=== PATIENT | male | born 1980 | race Caucasian/White ===

== ENCOUNTER 2021-12-10 08:03 | Outpatient (CLI) | payer BC, SELFPAY ==
[2021-12-10 18:37] LABS: Alanine Aminotransferase 150 U/L (6-50); Albumin Level 4.5 g/dL (3.5-5.1); Alkaline Phosphatase 66 U/L (38-126); Anion Gap 10 mmol/L (8-16); Aspartate Amino Transferase 106 U/L (17-59); Blood Urea Nitrogen 17 mg/dL (9-20); Calcium 9.1 mg/dL (8.4-10.2); Carbon Dioxide 26 mmol/L (22-30); Chloride 98 mmol/L (98-107); Cholesterol 254 mg/dL (0-200); Estimated Glomerular Filt Rate > 60; Glucose 96 mg/dL (65-110); HDL Direct 33 mg/dL; Potassium 3.9 mmol/L (3.4-5.0); Sodium 134 mmol/L (137-145); Triglycerides 190 mg/dL (<150); Uric Acid 10.4 mg/dL (3.5-8.5)
[2021-12-10 18:41] LABS: Hemoglobin A1C 5.3 % (<5.7)
[2021-12-10 18:47] LABS: LDL Cholesterol Direct 162 mg/dL
== END 2021-12-10 08:04 | disposition home or self-care (01) ==
PROVIDERS: PCP Family Medicine; Visit Provider Family Medicine
DX: E03.9 Hypothyroidism, unspecified (principal); R73.01 Impaired fasting glucose; E78.5 Hyperlipidemia, unspecified; E79.0 Hyperuricemia without signs of inflammatory arthritis and tophaceous disease; Z13.228 Encounter for screening for other metabolic disorders
CPT/HCPCS: 36415; 80053; 80061; 83036; 84443; 84550

== ENCOUNTER → 2021-12-16 10:39 | Outpatient (CLI) | payer BC, SELFPAY ==
--- NOTE | ~2021-12-16 | US_ITS ---
EXAMINATION: US soft tissue groin LT DATE: 12/16/2021 11:16 INDICATION: left groin pulling sensation x3 weeks . TECHNIQUE: Grayscale and Doppler ultrasound images of the left groin were obtained. COMPARISON: Ultrasound left lower cavity venous Doppler, same date FINDINGS: The area of clinical concern was interrogated sonographically, revealing normal-sized lymph nodes. No solid or cystic mass. No sonographic evidence of inguinal hernia. IMPRESSION: No sonographic abdominal detected in the left groin. Reviewed, dictated and finalized at location K.
--- NOTE | ~2021-12-16 | US_ITS ---
EXAMINATION:US venous doppler LE LT INDICATION:Left groin pain TECHNIQUE: Multiple grayscale, color flow and Doppler images of the left lower extremity deep venous systems were obtained and reviewed. COMPARISON:No prior studies for comparison. FINDINGS: The common femoral, superficial femoral and popliteal veins demonstrate normal respiratory variation, augmentation and compressibility. Color flow is also seen within the posterior tibial, pe roneal, greater saphenous and profunda veins. IMPRESSION: 1: No lower extremity deep venous thrombosis. Reviewed, dictated and finalized at location A.
== END ==
PROVIDERS: PCP Family Medicine; Visit Provider Family Medicine
DX: R10.32 Left lower quadrant pain (principal); M79.89 Other specified soft tissue disorders
CPT/HCPCS: 76882; 93971

== ENCOUNTER 2022-02-17 08:04 | Outpatient (CLI) | payer BC, SELFPAY ==
[2022-02-17 19:14] LABS: Alanine Aminotransferase 70 U/L (6-50); Albumin Level 4.2 g/dL (3.5-5.1); Alkaline Phosphatase 81 U/L (38-126); Anion Gap 5 mmol/L (8-16); Aspartate Amino Transferase 71 U/L (17-59); Bilirubin,Total 1.8 mg/dL (0.2-1.3); Blood Urea Nitrogen 13 mg/dL (9-20); Calcium 8.7 mg/dL (8.4-10.2); Carbon Dioxide 28 mmol/L (22-30); Chloride 103 mmol/L (98-107); Estimated Glomerular Filt Rate > 60; Glucose 89 mg/dL (65-110); Potassium 3.7 mmol/L (3.4-5.0); Sodium 136 mmol/L (137-145)
== END 2022-02-17 08:05 | disposition home or self-care (01) ==
LOC: ANHGOSHLAB 08:05
PROVIDERS: PCP Family Medicine; Visit Provider Family Medicine
DX: R74.01 Elevation of levels of liver transaminase levels (principal)
CPT/HCPCS: 36415; 80053

== ENCOUNTER → 2022-02-23 08:01 | Outpatient (CLI) | payer BC, SELFPAY ==
--- NOTE | ~2022-02-23 | US_ITS ---
EXAMINATION: US abdomen limited DATE: 02/23/2022 08:23 INDICATION: Elevated liver function tests and elevated bilirubin TECHNIQUE: Multiple grayscale and Doppler ultrasound images of the abdomen were obtained. COMPARISON: None available FINDINGS: Bowel gas obscures visualization of the pancreas. The visualized portions of the pancreas a re unremarkable. The liver demonstrates increased echogenicity, heterogenous echotexture, and decreas ed through transmission. There appears to be focal sparing adjacent to the gallbladder fossa. No surf moises nodularity. Normal hepatopetal flow in the main portal vein. The gallbladder is normal with no ab normal wall thickening, pericholecystic fluid or stones. The normal common bile duct measures 4 mm. T here was no sonographic Faustin sign. IMPRESSION: 1. Diffuse hepatic steatosis. Reviewed, dictated and finalized at location A. GRINDER
== END ==
PROVIDERS: PCP Family Medicine; Visit Provider Family Medicine
DX: R74.8 Abnormal levels of other serum enzymes (principal); K76.0 Fatty (change of) liver, not elsewhere classified
CPT/HCPCS: 76705

== ENCOUNTER → 2022-04-03 07:48 | Outpatient (CLI) | payer BC, SELFPAY ==
--- NOTE | ~2022-04-03 | US_ITS ---
Ultrasound of the left groin CLINICAL HISTORY: Groin pain TECHNIQUE: Sonographic imaging of the left groin region was performed. FINDINGS: Several small morphologically normal lymph nodes are noted. No pathologic lymphadenopathy o r other suspicious mass lesion identified. No fluid collection identified. No hernia evident. IMPRESSION: No significant abnormality identified. Reviewed, dictated and finalized at [facility]. ER'S LICENSE EXAMINER
--- NOTE | ~2022-04-03 | US_ITS ---
Abdominal Sonogram: Real-time sonographic imaging of the abdomen was performed. Clinical History: Abdominal pain Findings: The liver appears echogenic, with no evidence of mass lesion or bile duct dilatation. Main portal vein demonstrates normal direction of flow. The spleen is normal in size without evidence of focal lesion. The gallbladder is well distended, and appears normal with no evidence of gallstone or wall thickening. The common bile duct measures 3 mm. The visualized pancreas, aorta, and IVC are un remarkable. The right kidney measures 9.6 cm in length and the left kidney measures 10.7 cm. There is no hydronephrosis or renal calculus. Impression: Diffuse fatty infiltration of the liver. Reviewed, dictated and finalized at location M. LE HOME SERVICER Impression: Diffuse fatty infiltration of the liver.
== END ==
PROVIDERS: PCP Family Medicine; Visit Provider Nurse Practitioner
DX: R10.32 Left lower quadrant pain (principal)
CPT/HCPCS: 76700; 76882

== ENCOUNTER 2022-04-16 09:34 | Outpatient (CLI) | payer BC, SELFPAY ==
[2022-04-16 09:56] LABS: Hematocrit 46.5 % (42.0-52.0); Hemoglobin 15.9 g/dL (14.0-18.0); Mean Corpuscular HGB Conc 34.2 g/dl (32-36); Mean Corpuscular Hemoglobin 31.7 pg (26-34); Mean Corpuscular Volume 92.8 fl (80-100); Mean Platelet Volume 9.1 fl (7.4-10.4); Platelet Count Result 295 k/mm3 (150-375); Red Blood Count 5.01 M/mm3 (4.6-6.20); Red Cell Distribution Width 12.3 % (11.5-14.5); White Blood Count 9.5 K/mm3 (4.5-10.0)
[2022-04-16 10:25] LABS: Alanine Aminotransferase 85 U/L (6-50); Albumin Level 4.7 g/dL (3.5-5.1); Alkaline Phosphatase 93 U/L (38-126); Aspartate Amino Transferase 56 U/L (17-59); Bilirubin,Total 1.6 mg/dL (0.2-1.3); CRP 0.5 mg/dL (<1.0)
[2022-04-16 10:27] LABS: Erythrocyte Sedimentation Rate 13 mm/hr (0-20)
[2022-04-16 11:01] LABS: Hepatitis B Surface Antigen Negative (Negative)
[2022-04-16 11:07] LABS: HAV RESULT Negative (Negative); Hepatitis B Core IgM Result Negative (Negative)
[2022-04-16 11:31] LABS: Hepatitis B Surface Anti Res Indeterminate; Hepatitis C Virus Antibody Reactive (Negative)
[2022-04-19 08:51] LABS: Actin Antibody (IgG) <20 U (<20)
[2022-04-19 13:24] LABS: LKM 1 Antibody <=20.0 U (<=20.0)
[2022-04-19 14:47] LABS: Hepatitis C RNA, Quant PCR <15 IU/mL
[2022-04-20 11:29] LABS: Hepatitis A Antibody Total Reactive (Nonreactive)
[2022-04-21 11:03] LABS: Mitochondrial (M2) Ab (IgG) 42.4 U (<=20.0)
[2022-04-21 19:55] LABS: Ceruloplasmin 23 mg/dL (18-36)
[2022-04-22 16:23] LABS: Alpha Fetoprotein Tumor Marker 1.7 ng/mL (<6.1)
[2022-04-23 09:08] LABS: Gliadin AB, IgG <1.0 U/mL (<15.0); TTG IGA AB <1.0 U/mL (<15.0)
== END 2022-04-16 09:35 | disposition home or self-care (01) ==
LOC: ANHLAB 09:35
PROVIDERS: PCP Family Medicine; Visit Provider Nurse Practitioner
DX: K76.0 Fatty (change of) liver, not elsewhere classified (principal); R79.89 Other specified abnormal findings of blood chemistry; K74.60 Unspecified cirrhosis of liver
CPT/HCPCS: 36415; 80074; 80076; 82105; 82390; 82728; 83516; 83520; 85027; 85652; 86038; 86140; 86255; 86376; 86706; 86708; 87522

== ENCOUNTER 2022-05-13 00:42 | Day surgery (SDC) | payer BC, SELFPAY ==
[2022-04-27 14:28] VITALS: BMI 27.3
[2022-05-13 11:28] VITALS: BP 113/79; PULSE 112; RESP 20; TEMP 36.4; O2SAT 100
[2022-05-13] MEDS: LACTATED RINGERS 1,000 ML 150 ML IV CONT (11:30)
--- NOTE | 2022-05-13 11:45 | WPDHPUPDATE1 ---
History and Physical Update Update Date/Time: 05/13/22 11:45 History and Physical has been reviewed, including an updated exam of the patient. There are NO changes in the patient's condition. Risks, benefits, and alternatives have been discussed and questions answered. Patient agrees to proceed with procedure.
--- NOTE | 2022-05-13 12:14 | SUR.OPER ---
EGD ended at 1207. Colonoscopy began at 1212.
[2022-05-13 12:25] VITALS: BP 86/49; PULSE 93; RESP 22; O2SAT 97
[2022-05-13 12:35] VITALS: BP 90/48; PULSE 87; RESP 20; O2SAT 100
[2022-05-13 12:45] VITALS: BP 98/68; PULSE 78; RESP 20; O2SAT 100
[2022-05-13 12:55] VITALS: BP 108/75; PULSE 84; RESP 20; O2SAT 98
== END 2022-05-13 13:02 | disposition home or self-care (01) ==
PROVIDERS: PCP Family Medicine; Visit Provider Internal Medicine Gastroenterology
PROC: 0DJ08ZZ Inspection of Upper Intestinal Tract, Via Natural or Artificial Opening Endoscopic (ICD-10-PCS; CPT 43235; principal; 2022-05-13 12:30)
DX: Z12.11 Encounter for screening for malignant neoplasm of colon (principal); K57.30 Diverticulosis of large intestine without perforation or abscess without bleeding; K22.2 Esophageal obstruction; K20.0 Eosinophilic esophagitis; E78.5 Hyperlipidemia, unspecified; E03.9 Hypothyroidism, unspecified; M10.9 Gout, unspecified; K76.0 Fatty (change of) liver, not elsewhere classified; Z79.82 Long term (current) use of aspirin
CPT/HCPCS: 45378; 43249; 43239; 88305; C1726; J2704; J7120

== ENCOUNTER 2022-05-27 09:50 | Outpatient (CLI) | payer BC, SELFPAY ==
[2022-05-27 10:55] LABS: Alanine Aminotransferase 67 U/L (6-50); Albumin Level 4.6 g/dL (3.5-5.1); Alkaline Phosphatase 84 U/L (38-126); Aspartate Amino Transferase 54 U/L (17-59); Bilirubin,Total 1.8 mg/dL (0.2-1.3)
[2022-06-04 14:53] LABS: ALT 53 U/L (9-46); Alpha-2-Macroglobulin 152 mg/dL (106-279); Apolipoprotein A1 130 mg/dL (94-176); Fibrosis Score 0.25; Fibrosis Stage F0-F1; GGT 20 U/L (3-95); Haptoglobin 106 mg/dL (43-212); Necroinflammat Act Grade A1; Total Bilirubin 1.4 mg/dL (0.2-1.2)
== END 2022-05-27 09:51 | disposition home or self-care (01) ==
LOC: ANHLAB 09:51
PROVIDERS: PCP Family Medicine; Visit Provider Nurse Practitioner
DX: K74.3 Primary biliary cirrhosis (principal); K76.0 Fatty (change of) liver, not elsewhere classified; R79.89 Other specified abnormal findings of blood chemistry
CPT/HCPCS: 36415; 80076; 81596

== ENCOUNTER 2022-08-21 01:45 | Day surgery (SDC) | payer BC, SELFPAY ==
[2022-08-13 15:08] VITALS: BMI 27.3
[2022-08-21 10:20] VITALS: BP 123/78; PULSE 68; RESP 20; TEMP 36.1; O2SAT 100
--- NOTE | 2022-08-21 10:23 | WPDANESEPPF ---
Anes - Initial Pre Proc Eval Procedure: Operation Date: 08/21/22 11:30 Proposed Procedures p Esophagogastroduodenoscopy - Pierre Babb MD Date/Time: 08/21/22 10:23 Surgeon: Pierre Babb MD Pre Op Diagnosis: eosinophilic esophagitis Patient Data Age: 42 Gender: M Height: 1.78 m Weight: 86.8 kg Last Vital Signs Temp 36.1 C L 08/21/22 10:20 Pulse 68 08/21/22 10:20 Resp 20 08/21/22 10:20 BP 123/78 08/21/22 10:20 Pulse Ox 100 08/21/22 10:20 O2 Del Method Room Air 08/21/22 10:20 Allergies Allergy/AdvReac Type Severity Reaction Status Date / Time No Known Allergies Allergy Verified 08/21/22 10:18 Home Medications Medication Instructions Recorded Confirmed Type aspirin 81 mg tablet,delayed 81 mg PO DAILY 12/09/21 08/13/22 History release (Adult Low Dose Aspirin) omeprazole 40 mg capsule,delayed 40 mg PO DAILY #30 caps 05/13/22 08/13/22 Rx release allopurinol 100 mg tablet 100 mg PO DAILY #90 tabs 06/12/22 08/13/22 Rx atorvastatin 20 mg tablet 20 mg PO DAILY #90 tabs 06/12/22 08/13/22 Rx levothyroxine 100 mcg tablet 100 mcg PO DAILY #90 tabs 06/17/22 08/21/22 Rx Patient hx anesthesia problems: none Family hx anesthesia problems: none Results Review: All pre-operative results and documents have been reviewed as part of the pre-operative evaluation. [facility] Past Medical History Medical History (Updated 07/27/22 @ 10:09 by Kathleen Merritt APRN) Dysphagia Elevated LFTs Eosinophilic esophagitis Former consumption of alcohol Hepatic steatosis Hepatitis C antibody test positive Primary biliary cholangitis Surgical History Surgical History H/O wisdom tooth extraction (~2004) Hx of tonsillectomy (~1984) Status post LASIK surgery of both eyes (~2017) Family History Family History Father Malignant neoplasm of prostate Diabetes mellitus Mother Bladder cancer Sibling Throat cancer Grandparent Bladder cancer Social History Social History Smoking status: Never smoker Alcohol intake: former Drinks per week: 5 Alcohol use details: beer Substance use: never Substance use type: does not use Lack of Transportation: No Lack of Food: Never True Current Housing: I Have Housing Concerned About Future Housing: No Difficulty Paying Gas/Electric Bills: No Difficulty Paying for Meds: No Currently Unemployed: No Education: Bachelor's Degree Difficulty w/ Childcare or Family Care: No Living arrangements: with family Occupation/Education: occupation 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 Gender identity (if verbalized by the patient): Male Sexual Orientation (if Verbalized by the Patient): Straight or Heterosexual Spiritual care concerns: No Anes - Eval Final PreProcedure Day of Procedure 08/21/22 10:23 Patient weight: overweight Heart: regular rate and rhythm Lungs: clear to auscultation and normal air movement Airway: Mallampati scale class II Neurological: alert and oriented Last oral intake: >/= 8 hours ASA classification: II Emergent: no Anesthetic plan: proceed Anesthesia type and monitoring: general GIVS Results Review: All pre-operative results and documents have been reviewed as part of the pre-operative evaluation. Informed Consent: The patient's anesthetic plan and its attendant risks and benefits were discussed with the patient/family/POA. Questions were solicited and answers provided to the satisfaction of the patient/family/POA.
[2022-08-21] MEDS: LACTATED RINGERS 1,000 ML 150 ML IV CONT (10:32)
--- NOTE | 2022-08-21 10:51 | WPDHPUPDATE1 ---
History and Physical Update Update Date/Time: 08/21/22 10:51 History and Physical has been reviewed, including an updated exam of the patient. There are NO changes in the patient's condition. Risks, benefits, and alternatives have been discussed and questions answered. Patient agrees to proceed with procedure.
[2022-08-21 11:05] VITALS: BP 112/71; PULSE 67; RESP 18; O2SAT 100
[2022-08-21 11:15] VITALS: BP 110/65; PULSE 62; RESP 18; O2SAT 99
[2022-08-21 11:25] VITALS: BP 121/82; PULSE 74; RESP 23; O2SAT 97
== END 2022-08-21 11:29 | disposition home or self-care (01) ==
PROVIDERS: PCP Family Medicine; Visit Provider Internal Medicine Gastroenterology
PROC: 0DJ08ZZ Inspection of Upper Intestinal Tract, Via Natural or Artificial Opening Endoscopic (ICD-10-PCS; CPT 43235; principal; 2022-08-21 11:30)
DX: Z09 Encounter for follow-up examination after completed treatment for conditions other than malignant neoplasm (principal); Z87.19 Personal history of other diseases of the digestive system; R76.8 Other specified abnormal immunological findings in serum; B18.2 Chronic viral hepatitis C; K76.0 Fatty (change of) liver, not elsewhere classified; Z79.82 Long term (current) use of aspirin
CPT/HCPCS: 43239; 88305; J2704; J7120

== ENCOUNTER 2023-03-03 08:05 | Outpatient (CLI) | payer BC, SELFPAY ==
[2023-03-03 19:02] LABS: Hemoglobin A1C 5.7 % (<5.7)
[2023-03-03 20:04] LABS: Alanine Aminotransferase 55 U/L (6-50); Albumin Level 4.3 g/dL (3.5-5.1); Alkaline Phosphatase 97 U/L (38-126); Anion Gap 8 mmol/L (8-16); Aspartate Amino Transferase 43 U/L (17-59); Bilirubin,Total 1.8 mg/dL (0.2-1.3); Blood Urea Nitrogen 10 mg/dL (9-20); Calcium 9.2 mg/dL (8.4-10.2); Carbon Dioxide 27 mmol/L (22-30); Chloride 102 mmol/L (98-107); Cholesterol 140 mg/dL (0-200); Estimated Glomerular Filt Rate > 60; Glucose 107 mg/dL (65-110); HDL Direct 28 mg/dL; Potassium 4.2 mmol/L (3.4-5.0); Sodium 137 mmol/L (137-145); Triglycerides 144 mg/dL (<150); Uric Acid 6.8 mg/dL (3.5-8.5)
[2023-03-03 20:15] LABS: LDL Cholesterol Direct 84 mg/dL
[2023-03-03 20:35] LABS: Free T4 Free Thyroxine Reflex 1.09 ng/dL (0.78-2.19)
[2023-03-03 21:47] LABS: Total Triiodothyronine (T3) 1.11 NG/ML (0.97-1.69)
== END 2023-03-03 08:06 | disposition home or self-care (01) ==
LOC: ANHGOSHLAB 08:06
PROVIDERS: PCP Family Medicine; Visit Provider Family Medicine
DX: E03.9 Hypothyroidism, unspecified (principal); R73.01 Impaired fasting glucose; Z13.228 Encounter for screening for other metabolic disorders; Z13.220 Encounter for screening for lipoid disorders; M10.9 Gout, unspecified
CPT/HCPCS: 36415; 80053; 80061; 83036; 84439; 84443; 84480; 84550

== ENCOUNTER 2023-10-01 07:58 | Outpatient (CLI) | payer BC, SELFPAY ==
[2023-10-01 19:07] LABS: Alanine Aminotransferase 33 U/L (6-50); Albumin Level 4.2 g/dL (3.5-5.1); Alkaline Phosphatase 92 U/L (38-126); Anion Gap 10 mmol/L (4-12); Aspartate Amino Transferase 40 U/L (17-59); Bilirubin,Total 1.2 mg/dL (0.2-1.3); Blood Urea Nitrogen 11 mg/dL (9-20); Calcium 8.9 mg/dL (8.4-10.2); Carbon Dioxide 28 mmol/L (22-30); Chloride 99 mmol/L (98-107); Cholesterol 116 mg/dL (0-200); Estimated Glomerular Filt Rate > 60; Glucose 91 mg/dL (65-110); HDL Direct 31 mg/dL; Potassium 3.9 mmol/L (3.4-5.0); Sodium 137 mmol/L (137-145); Triglycerides 170 mg/dL (<150); Uric Acid 5.4 mg/dL (3.5-8.5)
[2023-10-01 19:18] LABS: LDL Cholesterol Direct 70 mg/dL
[2023-10-01 19:24] LABS: Free T4 Free Thyroxine 1.17 ng/mL (0.78-2.19)
[2023-10-01 19:33] LABS: Thyroid Stimulating Hormone 0.906 uIU/mL (0.465-4.680)
== END 2023-10-01 07:59 | disposition home or self-care (01) ==
LOC: ANHGOSHLAB 07:59
PROVIDERS: PCP Family Medicine; Visit Provider Family Medicine
DX: E78.2 Mixed hyperlipidemia (principal); E03.9 Hypothyroidism, unspecified; M10.9 Gout, unspecified; Z13.228 Encounter for screening for other metabolic disorders
CPT/HCPCS: 36415; 80053; 80061; 84439; 84443; 84550

== ENCOUNTER 2024-01-18 08:28 | Emergency (ER) | payer BC, SELFPAY ==
--- NOTE | ~2024-01-18 | XR_ITS ---
EXAMINATION: XR chest 2V DATE: 01/18/2024 09:27 INDICATION: Cough and shortness of breath. TECHNIQUE: Frontal and lateral views of the chest were obtained on 3 radiographs. COMPARISON: None. FINDINGS: There is no pneumonia, pleural effusion, or pneumothorax. The heart size is normal. IMPRESSION: 1. No acute cardiopulmonary disease. Reviewed, dictated and finalized at location A. CORRECTION OFFICER
[2024-01-18 08:49] VITALS: BP 115/87; PULSE 110; RESP 16; TEMP 36.6; O2SAT 99
--- NOTE | 2024-01-18 09:20 | ED_ITS ---
HPI - General Adult General Chief complaint: Upper Respiratory Infection Stated complaint: Cough Source: patient Mode of arrival: ambulatory Limitations: no limitations History of Present Illness HPI narrative: Pt presents for evaluation of a productive cough of green sputum for the past 3 weeks. He has some mild DO going up stairs. He denies any fever, chills, nausea, vomiting, sore throat, otalgia. He tried taking Mucinex for his symptoms. His daughters recently had pneumonia. He does not smoke. Related Data Allergies Allergy/AdvReac Type Severity Reaction Status Date / Time No Known Allergies Allergy Verified 03/02/23 15:53 Review of Systems Review of Systems: CONSTITUTIONAL: Denies fever, chills, or sweats. EYES: Denies visual changes, redness, or discharge. ENT: Denies rhinorrhea, congestion, sore throat, or otalgia. CARDIOVASCULAR: Denies chest pain, palpitations, or edema. RESPIRATORY: Reports cough. Denies SOB. GASTROINTESTINAL: Denies abdominal pain, nausea, vomiting, or diarrhea. GENITOURINARY: Denies dysuria or hematuria. SKIN: Denies rash or itching. MUSCULOSKELETAL: Denies back pain, joint pain, or myalgia. NEUROLOGIC: Denies headache, numbness, dizziness, or weakness. PSYCHIATRIC: Denies anxiety or depression. [facility] Past Medical History Medical History Dysphagia Elevated LFTs Eosinophilic esophagitis Former consumption of alcohol Hepatic steatosis Hepatitis C antibody test positive Primary biliary cholangitis Surgical History Surgical History H/O wisdom tooth extraction (~2004) Hx of tonsillectomy (~1984) Status post LASIK surgery of both eyes (~2017) Family History Family History Father Malignant neoplasm of prostate Diabetes mellitus Mother Bladder cancer Sibling Throat cancer Grandparent Bladder cancer Social History Social History Smoking status: Never smoker Alcohol intake: former Drinks per week: 0 Alcohol use details: 03/02/2023 patient quit 12mo ago Substance use: never Substance use type: does not use Lack of Transportation: No Lack of Food: Never True Current Housing: I Have Housing Concerned About Future Housing: No Difficulty Paying Gas/Electric Bills: No Difficulty Paying for Meds: No Currently Unemployed: No Education: Bachelor's Degree Difficulty w/ Childcare or Family Care: No Living arrangements: with family Occupation/Education: occupation 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 HEAD: Normocephalic, atraumatic. EYES: PERRLA and EOMI. ENT: Nares clear, no rhinorrhea or epistaxis. Mucous membranes moist. Oropharynx without tonsillar hypertrophy exudate or other lesions. Bilateral TMs pearly roach nonbulging NECK: Supple. No adenopathy or masses. No carotid bruits or JVD CHEST: Cough present on exam. Rales in RLL posteriorly HEART: Regular rate and rhythm. No murmur heard. Normal peripheral pulses. ABDOMEN: Soft, nontender, nondistended, normal active bowel sounds. EXTREMITIES: Normal range of motion. No edema. SKIN: Warm, dry, no rash. NEURO: No focal deficits. Alert and oriented x3. PSYCH: Normal mood and affect. Course Course Emergency Course: This is a 43-year-old male who presented for evaluation of a cough and some dyspnea on exertion. Chest x-ray was negative. Exam is consistent with viral URI. Will discharge with prednisone, albuterol, Tessalon. Increase hydration. Fzko-vlv-[id number] agents for symptom management. Follow up with primary provider. Go to the ER for worsening symptoms. Patient in agreement with plan of care. Level of Care: Express Care Visit Vital Signs Vital signs: Vital Signs Temperature 36.6 C 01/18/24 08:49 Pulse Rate 110 H 01/18/24 08:49 Respiratory Rate 16 01/18/24 08:49 Blood Pressure 115/87 01/18/24 08:49 Pulse Oximetry 99 01/18/24 08:49 Temperature 36.6 C 01/18/24 08:49 Pulse Rate 110 H 01/18/24 08:49 Respiratory Rate 16 01/18/24 08:49 Blood Pressure 115/87 01/18/24 08:49 Pulse Oximetry 99 01/18/24 08:49 Medical Decision Making Vital Signs Vital Signs: Vital Signs Temperature 36.6 C 01/18/24 08:49 Pulse Rate 110 H 01/18/24 08:49 Respiratory Rate 16 01/18/24 08:49 Blood Pressure 115/87 01/18/24 08:49 Pulse Oximetry 99 01/18/24 08:49 Temperature 36.6 C 01/18/24 08:49 Pulse Rate 110 H 01/18/24 08:49 Respiratory Rate 16 01/18/24 08:49 Blood Pressure 115/87 01/18/24 08:49 Pulse Oximetry 99 01/18/24 08:49 Imaging Data Radiologist's impression: EXAMINATION: XR chest 2V DATE: 01/18/2024 09:27 INDICATION: Cough and shortness of breath. TECHNIQUE: Frontal and lateral views of the chest were obtained on 3 radiographs. COMPARISON: None. FINDINGS: There is no pneumonia, pleural effusion, or pneumothorax. The heart size is normal. IMPRESSION: 1. No acute cardiopulmonary disease. Discharge Plan Discharge Clinical Impression: Upper respiratory infection, viral Patient Disposition: Home, Self-Care Condition: Stable Instructions: Antibiotic Form, Upper Respiratory Infection (ED), Viral Syndrome (ED) Patient Language: Occitan Prescriptions: New prednisone 50 mg tablet 50 mg PO DAILY Qty: 5 0RF albuterol sulfate 90 mcg/actuation HFA aerosol inhaler 2 puff inhalation QID PRN (Reason: shortness of breath or wheezing) Qty: 8.5 0RF benzonatate 200 mg capsule 200 mg PO TID PRN (Reason: cough) Qty: 30 0RF No Action omeprazole 40 mg capsule,delayed release(DR/EC) 40 mg PO DAILY Qty: 30 5RF levothyroxine 100 mcg tablet 100 mcg PO DAILY Qty: 90 1RF atorvastatin 20 mg tablet 20 mg PO DAILY Qty: 90 1RF allopurinol 100 mg tablet 100 mg PO DAILY Qty: 90 1RF Rx Instructions: LAST REFILL UNTIL SEEN-NEEDS APPOINTMENT Follow-up/Referrals: Adán Abraham DO [Primary Care Provider] - Time of Disposition: 09:40
== END 2024-01-18 09:48 | disposition home or self-care (01) ==
PROVIDERS: Emergency Provider Nurse Practitioner; PCP Family Medicine
DX: J06.9 Acute upper respiratory infection, unspecified (principal); K20.0 Eosinophilic esophagitis; K76.0 Fatty (change of) liver, not elsewhere classified
CPT/HCPCS: 71046; 99213; G0463

== ENCOUNTER 2024-09-26 11:22 | Outpatient (CLI) | payer BC, SELFPAY ==
--- NOTE | ~2024-09-26 | XR_ITS ---
EXAMINATION: XR abdomen obstructive series DATE: 09/26/2024 11:39 INDICATION: Diarrhea TECHNIQUE: Supine and upright views of the abdomen. FINDINGS: Comparison ultrasound abdomen dated 04/03/2022 The visualized lung parenchyma is normal.. There is a nonobstructive bowel gas pattern. Gas and stool are seen throughout the colon to the level of the rectum. There is no free air. IMPRESSION: 1. No acute abdominal abnormality. Reviewed, dictated and finalized at location B.
== END 2024-09-26 11:23 | disposition home or self-care (01) ==
PROVIDERS: PCP Family Medicine; Visit Provider Family Medicine
DX: M79.671 Pain in right foot (principal); R19.7 Diarrhea, unspecified
CPT/HCPCS: 73630; 74019

== ENCOUNTER 2024-10-05 07:33 | Outpatient (CLI) | payer BC, SELFPAY ==
--- NOTE | ~2024-10-05 | US_ITS ---
US abdomen limited INDICATION: Elevated liver function tests. PROCEDURE: Realtime right upper abdominal ultrasound. COMPARISON: No prior studies for comparison. FINDINGS: The pancreas is normal without focal mass or pancreatic ductal dilation. Liver echotexture is diffusely increased, consistent with fatty infiltration. There is normal directional flow in the portal vein. The gallbladder is normal without stones, gallbladder wall thickening or pericholecystic fluid. Comm on bile duct measures 3 mm. No sonographic Faustin's sign. Right renal length is 10.5 cm. IMPRESSION: 1: Fatty infiltration of the liver. Reviewed, dictated and finalized at location A.
== END 2024-10-05 07:34 | disposition home or self-care (01) ==
LOC: MICIMG 07:33
PROVIDERS: PCP Family Medicine; Visit Provider Family Medicine
DX: R79.89 Other specified abnormal findings of blood chemistry (principal); K76.0 Fatty (change of) liver, not elsewhere classified
CPT/HCPCS: 76705

== ENCOUNTER 2024-10-05 08:31 | Outpatient (CLI) | payer BC, SELFPAY ==
--- OUTSIDE RECORDS SUMMARY | 2024-10-05 08:36 | XMS_ITS ---
Author Organization [facility] [employer] [facility] [place] ([address]) Address [address] [place] [address] Care Team Providers Care Printer Slotter Helper Name Role Phone Adán Abraham Primary Care Provider UnavailMary Blanco Unavailable [phone] Kathleen Merritt Unavailable Unavailable [facility]Migration, Provider Unavailable Unavailab le [facility] Encounter Medications Medication SIG (Take, Route, Frequency, Duration) Notes Start Date End Date Status Atorvastatin Calcium 10 MG 1 tab(s) orally once a day; Duration: 30 day(s) Active Aspir-Low 81mg daily *Please review and pick correct strength-formulat ion from Medispan options. If intended option is not shown, discontinue and re-order from Quick Search* Active Ursodiol 300 MG 1 cap(s) orally 2 times a day; Duration: 30 day(s) Not-Taking Omeprazole 40 MG 1 cap(s) orally once a day; Duration: 30 day(s) Active Levothyroxine Sodium 100 MCG 1 tab(s) orally once a day; Duration: 30 day(s) Active Allopurinol 100 MG as directed orally Active Encounters Encounter Location Date Provider Diagnosis [place] [address] 08/28/2023 Provider ZZ-Migration Plan Of Treatment No Information Progress Notes * Robert FRANKDOB:1980 (44 yo M)Acc No.[id number]:08/28/2023 Patient: Robert ESCALANTE Provider: Esvin Mendoza :1980 A ge:43 Y S ex:Male Date:08/28/2023 Address:[address], [id number] Pcp:Adán Abraham Subjective: * Chief Complaints: * 1 . Multum To Medispan Conversion Encounter. * Medical History: * Medications: T aking Aspir-Low , Notes to Pharmacist: 81mg daily *Please review and pick correct strength[facility]formulation from [facility]. If intended option is not shown, discontinue and re-order from Quick Search*, Taking Atorvastatin Calcium 10 MG Tablet 1 tab(s) orally once a day , Taking Allopurinol 100 MG Tablet as directed orally , Taking Levothyroxine Sodium 100 MCG Tablet 1 tab(s) orally once a day , Taking Omeprazole 40 MG Capsule Delayed Release 1 cap(s) orally once a day , Not- Taking/PRN Ursodiol 300 MG Capsule 1 cap(s) orally 2 times a day Objective: * Vitals: Assessment: Plan: * Treatment: * Billing Information: * Visit Code: * Procedure Codes: * Electronic signature of Prov marjorier ZZ-Migration on 10/05/2024 at 08:35 AM CDT Sign off status: Pending * Provider: Esvin Mendoza Date: 08/28/2023 Generated for Lew peña/Jhonatan/Hilary on: 10/05/2024 08:35 AM CDT
--- OUTSIDE RECORDS SUMMARY | 2024-10-05 08:36 | XMS_ITS | Patient Health Record ---
Author Organization [facility] Address [address] [place] [address] [place] [id number] Care Team Providers Care Photo Mask Pattern Generator Name Role Phone OLIVIA MEDELLIN Primary Care Provider Reason For Referral No Information Medications Medication SIG (Take, Route, Frequency, Duration) Notes Start Date End Date Status Atorvastatin Calcium 10 MG 1 tablet Oral ly Once a day; Duration: 90 days Active Fenofibrate 48 MG 1 tablet with food O rally Once a day; Duration: 90 days Active Synthroid 125 MCG 1 tablet on an empty stomach in the morning Orally Once a day; Duration: 90 days Active Aspirin 325 MG 1 tablet Orally Once a day; Duration: 90 days Active Social History Tobacco Use: Social History Observation Description Date Details (start date - stop date) Never Smoker NA - NA Tobacco Use/Smoking Question Answer Notes Are you a nonsmoker Alcohol Screen Question Answer Notes Did you have a drink contain ing alcohol in the past year? Yes How often did you have a dri nk containing alcohol in the past year? 2 to 4 times a month (2 points) Points 2 Interpretation Negative Section Notes: Minimal consumption of alcoh ol Minimal consumption of alcoh ol Minimal consumption of alcoh ol Minimal consumption of alcoh ol Problems Problem Type SNOMED Code ICD Code Onset Dates Problem Status W/U Status Risk Notes Problem Mixed hyperlipidemia (471895029) Mixed hyperlipidemia (E78.2) Active confirmed Problem Hypothyroidism (20667081) Hypothyroidism, unspecified type (E03.9) Active confirmed Problem Allergy to beef (929655886) Allergy to beef (Z91.018) Active confirmed Plan Of Treatment Pending Test Test Name Order Date CARDIO CRP(R) 06/29/2018 cmp w/GFR 06/29/2018 cmp w/GFR 06/10/2018 cmp w/GFR 02/21/2019 T3, FREE 06/10/2018 C-REACTIVE PROTEIN 02/21/2019 HEMOGLOBIN A1c 02/21/2019 HEMOGLOBIN A1c 06/29/2018 CBC (INCLUDES DIFF and PLT) 06/29/2018 CBC (INCLUDES DIFF and PLT) 02/21/2019 MICROALBUMIN, RANDOM URINE (W/CREATININE ) 02/21/2019 MICROALBUMIN, RANDOM URINE (W/CREATININE ) 06/29/2018 LIPID PANEL 06/29/2018 LIPID PANEL 02/21/2019 LIPID PANEL 06/10/2018 T4, FREE 06/10/2018 TESTOSTERONE,TOTAL,MALES 02/21/2019 TESTOSTERONE,TOTAL,MALES 06/29/2018 TSH, 3RD GENERATION 06/29/2018 TSH, 3RD GENERATION 02/21/2019 TSH, 3RD GENERATION 06/10/2018 URIC ACID 06/10/2018 ECG 01/25/2018 PRICK TESTS 01/25/2018 Spirometry (for Elite physical) 01/26/20 18 Future Test Test Name Order Date cmp w/GFR 02/09/2018 T3, FREE 02/09/2018 LIPID PANEL 02/09/2018 T4, FREE 02/09/2018 TSH, 3RD GENERATION 02/09/2018 URIC ACID 02/09/2018 Insurance Providers Payer Name Payer Address Payer Phone Subscriber Number Group Number Insured Name Patient Relationship to Insured Coverage Start Date Coverage End Date [facility] [address] [place] [address] [id number] Robert Winston Self - patient is the insured Medical (General) History Medical History History ICD Code High blood pressure High Cholesterol Hyperthyroidism Surgical History Surgery Date(Month/Year) Tonsils removed 1983 [place] Tooth removed 2004
--- OUTSIDE RECORDS SUMMARY | 2024-10-05 08:36 | XMS_ITS | Referral Summary ---
Author Organization [facility] Address [address] [place] [address] Care Team Providers Care Urology Surgeon Name Role Phone No, Physician Primary Care Provider [phone] Allergies No known active allergies Medications fenofibrate nanocrystallized (TRICOR) 48 mg tablet Take 48 mg by mouth daily Active allopurinoL (ZYLOPRIM) 100 mg tablet Take 100 mg by mouth daily Active levothyroxine (SYNTHROID) 100 mcg tablet Take 100 mcg by mouth cutter v groove before breakfast Active atorvastatin (LIPITOR) 10 mg tablet Take 10 mg by mouth daily Active Active Problems No known active problems Social History Tobacco Use Types Packs/Day Years Used Date Smoking Tobacco: Never Assessed Sex and Gender Information Value Date Recorded Sex Assigned at Not on file Legal Sex Male 2:05 PM CDT Gender Identity Not on file Sexual Orientation Not on file Last Filed Vital Signs Vital Sign Reading Time Taken Comments Blood Pressure 122/87 11/24/2021 6:00 PM CDT Pulse 75 11/24/2021 6:00 PM CDT Temperature 36.4 C (97.5 F) 11/24/2021 2:25 PM CDT Respiratory Rate 18 11/24/2021 4:16 PM CDT Oxygen Saturation 98% 11/24/2021 6:00 PM CDT Inhaled Oxygen Concentration - - Weight 81.6 kg (180 lb) 11/24/2021 2:25 PM CDT Height 177.8 cm (5' 10) 11/24/2021 2:25 PM CDT Body Mass Index 25.83 11/24/2021 2:25 PM CDT Plan of Treatment Not on file Insurance [facility] [employer] [facility] [employer] Care Teams Urology Surgeon Relationship Specialty Start Date End Date No, Physician PCP - General 11/24/21
--- OUTSIDE RECORDS SUMMARY | 2024-10-05 08:36 | XMS_ITS | Clinical Summary ---
Author Organization [facility] [employer] Address [address] 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 This disclosure is being madepursuant to the Care Everywhere program and may not contain all information available regarding this patient. Last updated 17.[facility] [employer] Allergies No known active allergies Medications * Be aware that medications may not be up to date on this document. Alwaysverify current medications with the patient. levothyroxine (Synthroid) 100 MCG tablet Take 1 (one) tablet by mouth once daily 06/19/2022 Active atorvastatin (Lipitor) 20 MG tablet Take 1 (one) tablet by mouth once daily 06/12/2022 Active allopurinol (Zyloprim) 100 MG tablet Take 1 (one) tablet by mouth once daily Active omeprazole (PriLOSEC) 40 MG capsule TAKE 1 CAPSULE BY MOUTH EVERY DAY 90 capsule 3 03/21/2024 Active Active Problems Problem Noted Date Diagnosed Date Nonalcoholic fatty liver disease 07/23/2022 Overview (02/28/2024): 07/23/22 Fibroscan CAP 339, LSM 5.5 kPa 02/28/24 Fibroscan CAP 279, LSM 5.2 kPa Immunizations Immunization Administration Dates Next Due INFLUENZA VACCINE, TRIV. (AF LURIA, FLUZONE TRIVALENT; 6MO+) (IIV3) 01/10/2020,12/28/2018,12/02/2017,2004 HEP A VACCINE, ADULT 07/05/2000,08/22/1999 HEP B VACCINE, PED/ADOL 04/26/2002,06/16/2001, MMR 08/22/1999 POLIO IPV 08/22/1999 TD (ADULT), 5 LF TETANUS TOX OID, ADSORBED, PF 08/15/1999 TDAP (7yrs+) 06/25/2017 TYPHOID VACCINE H-P 07/05/2000 YELLOW FEVER 10/07/2001 Family History Medical History Relation Name Comments Diabetes; unknown type Father Cancer - Bladder Mother Relation Name Status Comments Father Mother Social History Tobacco Use Types Packs/Day Years Used Date Smoking Tobacco: Never Smokeless Tobacco: Never Alcohol Use Standard Drinks/Week Comments Not Currently 0 (1 standard drink = 0.6 oz pur e alcohol) Quit Feb 2022 Sex and Gender Information Value Date Recorded Sex Assigned at Not on file Legal Sex Male 1:12 PM CDT Gender Identity Not on file Sexual Orientation Not on file Last Filed Vital Signs Vital Sign Reading Time Taken Comments Blood Pressure 137/85 02/28/2024 2:21 PM BILLPOSTING SUPERVISOR Pulse 96 02/28/2024 2:21 PM BILLPOSTING SUPERVISOR Temperature 36.9 C (98.4 F) 02/28/2024 2:21 PM BILLPOSTING SUPERVISOR Respiratory Rate 16 12/07/2022 8:28 AM CDT Oxygen Saturation 99% 02/28/2024 2:21 PM BILLPOSTING SUPERVISOR Inhaled Oxygen Concentration - - Weight 89.7 kg (197 lb 12.8 oz) 02/28/2024 2:21 PM BILLPOSTING SUPERVISOR Height 177.8 cm (5' 10) 02/28/2024 2:21 PM BILLPOSTING SUPERVISOR Body Mass Index 28.38 02/28/2024 2:21 PM BILLPOSTING SUPERVISOR Plan of Treatment Upcoming Encounters Date Type Department Care Team (Late st Contact Info) Description 02/27/2025 10:30 AM BILLPOSTING SUPERVISOR Procedure visit [facility] - [address], [facility] [place] [address] 02/27/2025 11:00 AM BILLPOSTING SUPERVISOR Office Visit [facility] - [place] [address] [facility], [place] [id number] Anil Oliva MD [facility] [place] [address] Health Maintenance Due Date Last Done Comments HEPATITIS B VACCINE (2 of 3 - 19+ 3-dose series) 05/24/2002 04/26/2002, 06/16/2001, 07/05/2000 HPV VACCINE (1 - 3-dose SCDM series) 2008 COVID-19 VACCINE ( - season) 2023 04/28/2021, 05/15/2020, 04/15/2020 DEPRESSION SCREENING 03/15/2024 INFLUENZA VACCINE (#1) 2024 0, 12/28/2018, 12/02/2017, Additional history exists SCREENING FOR DIABETES 02/27/2027 4, 12/07/2022, 07/23/2022, Additional history exists DTAP/TDAP/TD VACCINES (3 - Td or Tdap) 06/26/2027 06/25/2017, 08/15/1999 ZOSTER VACCINE (1 of 2) 2031 HIV SCREENING Completed 03/24/2021 HEPATITIS C SCREENING Completed 07/23/2022 HIB VACCINE Aged Out No longer eligi ble based on patient's age to complete this topic MENINGOCOCCAL (Group B) VACCINE SHARED DECISION-MAKING Aged Out No longer eligible based on patient's age to complete this topic MENINGOCOCCAL GROUPS A/C/Y/W VACCINE Aged Out No longer eligible based on patient's age to complete this topic PNEUMOCOCCAL VACCINE Aged Out No long er eligible based on patient's age to complete this topic Goals Goal Patient Goal Type Associated Problems Recent Progress Patient-Stated? Author Medication Management General No Keila Kellogg, RN Note: Expected end date: Interventions: Take all medications as prescribed Procedures Procedure Name Priority Date/Time Associated Diagnosis Comments COMPREHENSIVE METABOLIC PANEL Routine 02/28/2024 3:03 PM BILLPOSTING SUPERVISOR Nonalcoholic fatty liver disease PETER (nonalcoholic steatohepatitis) Insulin resistance Hypothyroidism, unspecified type HEPATITIS C ANTIBODY Routine 07/23/2022 11:48 AM CDT Nonalcoholic fatty liver disease from Last 3 Months or Most Recently Relevant to Health Maintenance Results * (ABNORMAL) COMPREHENSIVE METABOLIC PANEL (02/28/2024 3:03 PM BILLPOSTING SUPERVISOR) BUN 9 7 - 26 mg/dL 02/28/2024 3:46 PM [facility] Creatinine 1.04 0.71 - 1.16 mg/dL 02/28/2024 3:46 PM [facility] Sodium 139 136 - 145 mmol/L 02/28/2024 3:46 PM [facility] Potassium 4.1 3.5 - 4.5 mmol/L 02/28/2024 3:46 PM [facility] Chloride 108(H) 98 - 107 mmol/L 02/28/2024 3:46 PM [facility] CO2 28 22 - 29 mmol/L 02/28/2024 3:46 PM [facility] Glucose 95 70 - 99 mg/dL 02/28/2024 3:46 PM [facility] Calcium 9.5 8.4 - 10.2 mg/dL 02/28/2024 3:46 PM [facility] Protein Total 7.6 6.0 - 8.3 g/dL 02/28/2024 3:46 PM [facility] Albumin 4.3 3.4 - 5.0 g/dL 02/28/2024 3:46 PM [facility] Bilirubin Total 2.1(H) 0.2 - 1.2 mg/dL 02/28/2024 3:46 PM [facility] Alkaline Phosphatase 109 40 - 150 U/L 02/28/2024 3:46 PM [facility] ALT 59(H) 5 - 55 U/L 02/28/2024 3:46 PM [facility] AST 38(H) 5 - 34 U/L 02/28/2024 3:46 PM [facility] Anion Gap 3(L) 6 - 16 02/28/2024 3:46 PM [facility] BUN/Creatinine Ratio 9 7 - 23 02/28/2024 3:46 PM [facility] Osmolality Calculated 286 275 - 295 mOsm/kg 02/28/2024 3:46 PM [facility] Albumin/Globulin Ratio 1.3 1.1 - 2.3 02/28/2024 3:46 PM [facility] eGFR by CKD-EPI >90 >=90 mL/min/1.7 3 m2 02/28/2024 3:46 PM [facility] Blood BLOOD SPECIMEN / Unknown Lab Venipuncture / Unknown 02/28/2024 3:03 PM BILLPOSTING SUPERVISOR 02/28/2024 3:16 PM [facility] Anil Oliva MD LAB - CHEMISTRY ORDERA BLES Final Result Performing Organization Address [facility]/ZIP Co de Phone Number [address] [address], [place] [phone] * HEPATITIS C ANTIBODY (07/23/2022 11:48 AM CDT) Pathologist [facility] Hepatitis C Antibody Non-react maisha Non-reac tive 07/23/2022 12:51 PM CDT [facility] Comment:Hepatitis C Antibody screen indicates no serologic evidence of past or current infection with Hepatitis C Virus. Patients with unexplained liver disease who are immunocompromised or suspected of having acute Hepatitis C infection may benefit from Nucleic Acid Test (BRITTNEY) for Hepatitis C Viral RNA to confirm Hepatitis C status. Blood BLOOD SPECIMEN / Unknown Lab Venipuncture / Unknown 07/23/2022 11:48 AM CDT 07/23/2022 11:59 AM CDT us Anil Oliva MD LAB - CHEMISTRY ORDERA BLES Final Result Performing Organization Address City/[facility]/ZIP Co de Phone Number [address] [address], [place] [phone] from Last 3 Months or Most Recently Relevant to Health Maintenance Insurance ANTHEM * Guarantor: Robert Vo Account Type Relation to Patient Date of Phone Billing Address Personal/Family Spouse Care Teams Otr Refrigerated Cdl Truck Driver Relationship Specialty Start Date End Date Adán Abraham DO [facility] [place] [id number] PCP - General 05/27/22
--- OUTSIDE RECORDS SUMMARY | 2024-10-05 08:36 | XMS_ITS | Clinical Summary ---
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 Active atorvastatin (LIPITOR) 10 mg tablet Take 10 mg by mouth daily Active Active Problems No known active problems Medical History Medical History Date Comments Thyroid disease Social History Tobacco Use Types Packs/Day Years Used Date Smoking Tobacco: Never Assessed Sex and Gender Information Value Date Recorded Sex Assigned at Not on file Legal Sex Male 2:05 PM CDT Gender Identity Not on file Sexual Orientation Not on file Obstetrics History Last Filed Vital Signs Vital Sign Reading [...] 11/24/2021 2:25 PM CDT Plan of Treatment Health Maintenance Due Date Last Done Comments Depression Screening 1981 Hepatitis C Screening 1981 DTaP/Tdap/Td Vaccine (1 - Tdap) 1992 Varicella Vaccines (1 of 2 - 13+ 2-dose series) 1994 Hepatitis B Screening 1999 Regular Well Visit/Exam 18-64 1999 Influenza Vaccine (#1) 2024 HPV Vaccines Aged Out No longer eligi ble based on patient's age to complete this topic Pneumococcal vaccine <65 Aged Out No longer eligible based on patient's age to complete this topic Insurance [facility] [employer] Care Teams Roll Handler Relationship Specialty Start Date End Date No, Physician PCP - General 11/24/21
--- OUTSIDE RECORDS SUMMARY | 2024-10-05 08:36 | XMS_ITS | Patient Health Record ---
Author Organization [facility] ([address]) Address [address] [place] [address] Care Team Providers Care Career And Transition Teacher Name Role Phone Adán Abraham Primary Care Provider UnavailMary Blanco Unavailable [phone] Kathleen Merritt Unavailable Unavailable Allergies No Known Allergies Reason For Referral No Information Medications Medication SIG (Take, Route, Frequency, Duration) Notes Start Date End Date Status Allopurinol 100 MG as directed orally Active Atorvastatin Calcium 10 MG 1 tab(s) orally once a day; Duration: 30 day(s) Active Aspir-Low 81mg daily *Please review and pick correct strength-formulat ion from Travel Notesan options. If intended option is not shown, discontinue and re-order from Quick Search* Active Ursodiol 300 MG 1 cap(s) orally 2 times a day; Duration: 30 day(s) Not-Taking OMEPRAZOLE 40 mg 1 cap(s) orally once a day; Duration: 30 day(s) Active Omeprazole 40 MG 1 cap(s) orally once a day; Duration: 30 day(s) Active Levothyroxine Sodium 100 MCG 1 tab(s) orally once a day; Duration: 30 day(s) Active ALLOPURINOL 100 mg as directed orally Active LEVOTHYROXINE 100 mcg (0.1 mg) 1 tab(s) orally once a day; Duration: 30 day(s) Active ASPIR-LOW 81mg daily Active ATORVASTATIN 10 mg 1 tab(s) orally once a day; Duration: 30 day(s) Active URSODIOL 300 mg 1 cap(s) orally 2 times a day; Duration: 30 day(s) Not-Taking Immunizations Vaccine Route Administration Date Status Comme nts H1N1 Influenza Unknown 12/13/2021 Administered Portal I nformation Hepatitis B (20 and more) Unknown 07/05/2000 Administer ed Portal Information Hepatitis A Unknown 08/22/1999 Administered Portal Info rmation Social History Tobacco Use: Social History Observation Description Date Details (start date - stop date) Never Smoker NA - NA Smoking Smart Form: Question Answer Notes Are you a: never smoker Problems Problem Type SNOMED Code ICD Code Onset Dates Problem Status W/U Status Risk Notes Problem Allergic rhinitis (70416369) Other allergic rhinitis (J30.89) Active confirmed Problem Chronic rhinitis (43711383) Chronic rhinitis (J31.0) Active confirmed Problem Gastro-esophagea l reflux disease without esophagitis (855062558) Gastro-esophage al reflux disease without esophagitis (K21.9) Active confirmed Problem Fatty liver (639613862) Fatty (change of) liver, not elsewhere classified (K76.0) Active confirmed Plan Of Treatment No Information Insurance Providers Payer Name Payer Address Payer Phone Subscriber Number Group Number Insured Name Patient Relationship to Insured Coverage Start Date [place] [facility] [place] [address] [place] [address] [id number] Robert Vo Self - patient is the insured Medical (General) History Medical History History ICD Code Hypercholesterolemia Hypothyroidism gout Elevated Liver Enzymes Surgical History Surgery Date(Month/Year) Tonsillectomy 1984 Lasik (both eyes) 03/18/2017 Endoscopy 08/21/2022
[2024-10-05 09:09] LABS: Hematocrit 46.4 % (42.0-52.0); Hemoglobin 15.5 g/dL (14.0-18.0); Immature Granulocyte Percent A 0.3 % (0-0.5); Lymphocytes Absolute Auto 2.23 K/mm3 (0.9-3.2); Mean Corpuscular HGB Conc 33.4 g/dl (32-36); Mean Corpuscular Hemoglobin 31.3 pg (26-34); Mean Corpuscular Volume 93.7 fl (80-100); Nucleated Red Blood Cells Absolute Auto 0.000 K/mm3 (0.0-0.012); Nucleated Red Blood Cells Perc 0.0 % (0.0-0.2); Platelet Count Result 261 k/mm3 (150-375); Red Blood Count 4.95 M/mm3 (4.6-6.20); White Blood Count 7.0 K/mm3 (4.5-10.0)
[2024-10-05 09:38] LABS: Alanine Aminotransferase 85 U/L (6-50); Albumin Level 4.6 g/dL (3.5-5.1); Alkaline Phosphatase 96 U/L (38-126); Anion Gap 8 mmol/L (4-12); Aspartate Amino Transferase 55 U/L (17-59); Bilirubin,Total 1.9 mg/dL (0.2-1.3); Blood Urea Nitrogen 12 mg/dL (9-20); Calcium 9.4 mg/dL (8.4-10.2); Carbon Dioxide 27 mmol/L (22-30); Chloride 104 mmol/L (98-107); Cholesterol 146 mg/dL (0-200); Estimated Glomerular Filt Rate > 60; Glucose 124 mg/dL (65-110); HDL Direct 35 mg/dL; Potassium 4.5 mmol/L (3.4-5.0); Sodium 139 mmol/L (137-145); Total Protein 7.7 g/dL (6.3-8.2); Triglycerides 173 mg/dL (<150); Uric Acid 6.9 mg/dL (3.5-8.5)
[2024-10-05 09:47] LABS: Free T4 Free Thyroxine 1.07 ng/dL (0.78-2.19); Hemoglobin A1C 5.8 % (<5.7)
[2024-10-05 10:11] LABS: Hepatitis B Surface Antigen Negative (Negative)
[2024-10-05 10:13] LABS: Thyroid Stimulating Hormone 1.450 uIU/mL (0.465-4.680)
[2024-10-05 10:17] LABS: HAV RESULT Negative (Negative); Hepatitis B Core IgM Result Negative (Negative)
== END 2024-10-05 08:32 | disposition home or self-care (01) ==
LOC: ANHLAB 08:32
PROVIDERS: PCP Family Medicine; Visit Provider Family Medicine
DX: Z00.00 Encounter for general adult medical examination without abnormal findings (principal); E78.2 Mixed hyperlipidemia; E03.9 Hypothyroidism, unspecified; R73.9 Hyperglycemia, unspecified; K76.0 Fatty (change of) liver, not elsewhere classified; M1A.0710 Idiopathic chronic gout, right ankle and foot, without tophus (tophi)
CPT/HCPCS: 36415; 80053; 80061; 80074; 83036; 84439; 84443; 84550; 85025